=== PATIENT | female | born 1950 | race Caucasian/White ===

== ENCOUNTER 2017-07-01 17:08 | Emergency (ER) | payer OTHER ==
[~2017-07-01] VITALS: Ht 165.1 cm; Wt 79.4 kg
[2017-07-01] MEDS ORDERED: TYLENOL PM EX-1 EACH PO (17:23)
[2017-07-01] MEDS ORDERED: APAP650 PO (17:23)
[2017-07-01 18:22] LABS: ABSOLUTE BASOPHILS 0.1 thou/uL (0.0-0.2); ABSOLUTE EOSINOPHILS 0.2 thou/uL (0.0-0.7); ABSOLUTE LYMPHOCYTES 1.2 thou/uL (0.8-5.3); ABSOLUTE MONOCYTES 0.7 thou/uL (0.0-1.2); ABSOLUTE NEUTROPHILS 9.3 thou/uL (1.6-8.1); BASOPHILS 0.4 %; EOSINOPHILS 1.5 %; HEMOGLOBIN 11.2 gm/dL (12.0-15.0); LYMPHOCYTES 10.3 %; MCH 28.7 pg (26.0-34.0); MCHC 33.8 g/dL (28.0-37.0); MCV 84.9 fL (80.0-100.0); MPV 6.5 fl. (7.2-11.1); NUCLEATED RBCS 0 /100WBC; PLATELET COUNT* 240 thou/uL (150-400); POLYS 81.8 %; RBC 3.89 mil/uL (4.20-5.00); RDW-CV 14.9 % (10.5-14.5); WBC 11.4 thou/uL (4.0-11.0)
[2017-07-01 18:30] LABS: CALCIUM 9.8 mg/dL (8.5-10.1); CREATININE 1.1 mg/dL (0.6-1.3); POTASSIUM 3.3 mmol/L (3.5-5.1)
[2017-07-01 19:00] LABS: APTT 28.2 Seconds (25.0-31.3); INR 1.1; PROTIME 10.9 Seconds (9.20-11.50)
[2017-07-01 20:50] VITALS: BP 137/60
== END 2017-07-01 20:45 | disposition short-term general hospital (02) ==
LOC: M.ERS 17:08
PROVIDERS: Physician Assistant
DX: T81.4XXA Infection following a procedure, initial encounter (principal); Z96.612 Presence of left artificial shoulder joint; I10 Essential (primary) hypertension; M79.7 Fibromyalgia; M19.90 Unspecified osteoarthritis, unspecified site; J45.909 Unspecified asthma, uncomplicated; Z88.2 Allergy status to sulfonamides; Z88.1 Allergy status to other antibiotic agents

== ENCOUNTER 2019-11-17 11:39 | Emergency (ER) | payer OTHER ==
[~2019-11-17] VITALS: Ht 165.1 cm; Wt 80.7 kg
[~2019-11-17 11:39] MED LIST: APAP650 PO; TYLENOL PM EX-1 EACH PO
[2019-11-17] MEDS ORDERED: APAP W/CODEINE1 TA2 PO (13:11)
[2019-11-17] MEDS ORDERED: TESSALON PERLE100 MG PO (13:11)
[2019-11-17] MEDS ORDERED: PROAIR HFA8.5 GM INH (13:11)
[2019-11-17 13:23] VITALS: BP 143/79
--- NOTE | 2019-11-18 17:30 | EKG ---
[place] [address] ELECTROCARDIOGRAM REPORT Name: THERON MATOS Room: [facility]#: [id number] Admission: 11/17/19 Attend Phys: Discharge: 11/17/19 Date of : 48 Date of Service: 11/17/19 1200 Report #: [id number] THIS REPORT FOR: //name// [facility] ED Test Date: 2019-11-17 Test Time: 12:00:36 Pat Name: THERON MATOS Department: Room: Gender: F Care Navigator: [facility] : 1950 Requested By: Shade Ayala Order Number: [id number] Rigoberto PRADHAN: Jamey Huang Measurements Intervals [place] Rate: 78 P: 43 MS: 158 QRS: -1 QRSD: 86 T: 57 QT: 408 QTc: 465 Interpretive Statements Sinus rhythm No previous ECG available for comparison Electronically Signed On 11-18-2019 17:30:18 CDT by Jamey Huang [email or web address] <ELECTRONICALLY SIGNED> By: Jamey Huang MD, [facility] 11/18/19 1730 1200 [facility] Jamey Huang MD, FACC /EPI
== END 2019-11-17 13:26 | disposition home or self-care (01) ==
LOC: M.ERS 11:39
DX: U07.1 COVID-19 (principal); I10 Essential (primary) hypertension; J45.909 Unspecified asthma, uncomplicated; M79.7 Fibromyalgia; M19.90 Unspecified osteoarthritis, unspecified site; G47.30 Sleep apnea, unspecified; Z90.711 Acquired absence of uterus with remaining cervical stump; Z90.49 Acquired absence of other specified parts of digestive tract; Z88.2 Allergy status to sulfonamides; Z88.8 Allergy status to other drugs, medicaments and biological substances